=== PATIENT | male | born 1960 | race Caucasian/White ===

== ENCOUNTER 2025-03-09 15:55 | Outpatient (AMB) | payer BC, SELFPAY ==
--- NOTE | 2025-03-09 16:16 | MHC.OFFVIS ---
Intake Visit Reasons: 3 Months PD Allergies No Known Allergies Allergy (Verified 03/04/25 12:30) HPI Comments Details: The patient is a 65-year-old male with Parkinson's disease. He is presenting with concerns regarding urine discoloration and medication management for Parkinson's Disease. The patient began noticing a urine color change, described as light red to orangey, potentially linked to the recent increase in medication for Parkinson's Disease. The discoloration ceased when the medication dose was adjusted, suggesting a possible correlation with medication changes. The patient has a known diagnosis of mild Parkinson's Disease characterized by right-sided stiffness and impaired motor skills, which significantly improve with medication. Concerns were discussed about the proper dosing of the medication, which was initially self-adjusted by the patient, leading to symptom relief. The patient remains unsure about the exact medication dosage, with discrepancies noted in adherence due to fears regarding urine discoloration. [facility] Medical History (Updated 03/09/25 @ 16:28 by Larry Garcia MD) Parkinson disease Review of Systems Const Details: - Genitourinary: Reports urine discoloration (light red to orange) - Neurological: Reports right-side stiffness Physical Exam Neuro Other: He is alert and awake with normal spontaneity of speech fluency comprehension and somewhat anxious affect. Facial expression blinking were somewhat diminished. There was mild cogwheeling rigidity in right upper extremity. Movements were slightly bradykinetic. No tremor or dyskinesia was noted. Assessment & Plan Assessment & Plan (1) Parkinson disease: Comment: MRI brain WO at [facility] in November 2024: One punctate left frontal WM lesion, otherwise ok Code(s): G20.A1 - Parkinson's disease without dyskinesia, without mention of fluctuations Category: Medical Qualifiers: Dyskinesia presence: without dyskinesia Fluctuating manifestations: with fluctuating manifestations Qualified Code(s): G20.A2 - Parkinson's disease without dyskinesia, with fluctuations (2) [place]-colored urine: Code(s): R82.998 - Other abnormal findings in urine Category: Medical Plan Impression: a: Parkinson disease b: Colored urine probably due to levodopa. He was concerned about blood in urine Rec: a: Carbidopa/levodopa 25/100, 2 tab, three times a day b: Urine hemoglobin Orders: Orders Urine Hemoglobin Today G20.A2 - Parkinson's disease without dyskinesia, with fluctuations Coding Level of Care Code Est Pt Level 4 (02863) Diagnoses Parkinson's disease without dyskinesia, with fluctuating manifestations G20.A2 Dyskinesia presence: without dyskinesia Fluctuating manifestations: with fluctuating manifestations [place]-colored urine R82.998
== END 2025-03-09 16:36 | disposition home or self-care (01) ==
LOC: HO.HSM 15:55
PROVIDERS: PCP Internal Medicine; Visit Provider Psychiatry & Neurology Neurology
DX: G20.A2 Parkinson's disease without dyskinesia, with fluctuations (principal); R82.998 Other abnormal findings in urine
CPT/HCPCS: 99214